=== PATIENT | male | born 1985 | race Caucasian/White ===

== ENCOUNTER 2020-05-02 08:11 | Emergency (ER) | payer BC, SELFPAY ==
[2020-05-02 08:21] VITALS: BP 141/76; PULSE 91; RESP 16; TEMP 36.4; O2SAT 100
--- NOTE | 2020-05-02 08:40 | ED.LOWEXIN ---
HPI - Extremity Injury (Lower) General Chief Complaint: Skin/Abscess/Foreign Body Stated Complaint: INFECTION ON LEGS Time Seen by Provider: 05/02/20 08:14 Source: patient Mode of arrival: ambulatory Limitations: no limitations History of Present Illness HPI Narrative: 34-year-old male presents to [facility] with possible infection to his posterior upper legs for the past 3 days. Patient reports that he noticed spots popping up to his posterior upper legs and was concerned he was having a reaction to his soap. Patient reports that his girlfriend did try to kelli the area last night with a needle. Patient has been applying Prid With little relief. Patient denies fever, bites, chills, nausea, vomiting or diarrhea. Onset (ago): day(s) (3) Other symptoms: none Related Data Home Medications Medication Instructions Recorded Confirmed No Home Medications 05/02/20 05/02/20 Allergies Allergy/AdvReac Type Severity Reaction Status Date / Time No Known Allergies Allergy Unverified 09/30/18 06:40 Review of Systems Constitutional: Constitutional: Denies chills, Denies fatigue, Denies fever(s) and Denies weakness ENT: Denies dysphagia, Denies epistaxis and Denies sore throat Respiratory: Respiratory: Denies chest congestion, Denies cough, Denies dyspnea and Denies wheezing Gastrointestinal: Gastrointestinal: Denies abdominal pain, Denies diarrhea, Denies nausea and Denies vomiting Musculoskeletal: Musculoskeletal: Denies back pain and Denies muscle cramps Integumentary/Breasts: Comments: Area of redness to posterior upper legs Neurologic: Denies vertigo, Denies dizziness, Denies syncope and Denies focal weakness PMFSH Family History Family History Grandparent Family history of congestive heart failure Other Family history of arthritis Family history of osteoporosis Social History Social History Smoking status: Heavy tobacco smoker Alcohol intake: current Comments At time of signature, I agree with nursing past medical, surgical, social and family history. There is no relevant family history pertinent to the presenting complaint. Exam Const: General: no acute distress and alert Nutritional Appearance: well nourished Orientation/consciousness: patient oriented x3 Neck: Neck: normal visual inspection Resp: Effort & Inspection: normal respiratory effort, not labored, not tachypneic and no use of accessory muscles Auscultation: clear to auscultation bilaterally, no rales, no rhonchi and no wheezes Cardio: Rate: regular rate, not bradycardic and not tachycardic Rhythm: regular rhythm and regular rhythm Heart sounds: no murmurs Skin: General skin exam: normal color, no jaundice and no pallor Other: There are multiple small pinpoint scabbed areas to posterior upper legs likely representing folliculitis. There is also a raised, erythematous 3 cm area to right posterior thigh. There is no fluctuance or induration noted. There is no streaking erythema, purulent drainage, bleeding, bruising or necrotic tissue noted. Neuro: General: patient oriented x3, moves all extremities, no meningeal signs and no focal motor deficits Psych: Appearance: grossly normal Mental Status: mental status grossly normal Affect: normal affect Attitude: cooperative Thought content: Yes Normal thought content present Course Vital Signs Vital signs: Vital Signs Temperature 36.4 C L 05/02/20 08:21 Pulse Rate 91 05/02/20 08:21 Respiratory Rate 16 05/02/20 08:21 Blood Pressure 141/76 H 05/02/20 08:21 Pulse Oximetry 100 05/02/20 08:21 Temperature 36.4 C L 05/02/20 08:21 Pulse Rate 91 05/02/20 08:21 Respiratory Rate 16 05/02/20 08:21 Blood Pressure 141/76 H 05/02/20 08:21 Pulse Oximetry 100 05/02/20 08:21 MDM - Extremity Injury (Lower) MDM Narrative Medical decision making narrativ
== END 2020-05-02 08:53 | disposition home or self-care (01) ==
PROVIDERS: Emergency Provider Nurse Practitioner Family
DX: L73.9 Follicular disorder, unspecified (principal); L03.115 Cellulitis of right lower limb; F17.200 Nicotine dependence, unspecified, uncomplicated
CPT/HCPCS: 99213; G0463

== ENCOUNTER → 2020-06-06 09:17 | Outpatient (CLI) | payer BC, SELFPAY ==
[2020-06-06 19:41] LABS: SARS-CoV-2 RNA PCR Positive
== END ==
PROVIDERS: Visit Provider Orthopaedic Surgery
DX: U07.1 COVID-19 (principal)
CPT/HCPCS: C9803; U0003; U0005

== ENCOUNTER 2020-06-21 00:31 | Day surgery (SDC) | payer BC, SELFPAY ==
[2020-06-06 13:19] VITALS: BMI 29.9
--- NOTE | 2020-06-14 10:16 | SUR.PREOP ---
pt states no changes in health hx since original interview date
--- NOTE | 2020-06-20 12:02 | WPDANESEPPF ---
Anes - Initial Pre Proc Eval Procedure: Operation Date: 06/21/20 07:30 Proposed Procedures p Repair Right Ankle Ligaments - Baldo Sunshine MD Date/Time: 06/20/20 12:02 Surgeon: Baldo Sunshine MD Pre Op Diagnosis: Right ankle Ligament tear, right ankle Instability Patient Data Age: 34 Gender: M Height: 1.83 m Weight: 100 kg Allergies Allergy/AdvReac Type Severity Reaction Status Date / Time No Known Allergies Allergy Verified 06/21/20 06:52 Home Medications Medication Instructions Recorded Confirmed Type ondansetron 8 mg disintegrating 8 mg PO Q6-8H PRN #10 tablet 06/06/20 06/21/20 Rx tablet oxycodone-acetaminophen 7.5 mg-325 1 tablet PO Q4-8H PRN #30 tablet 06/06/20 06/21/20 Rx mg tablet Patient hx anesthesia problems: none Family hx anesthesia problems: none PMFSH Past Medical History Medical History (Updated 06/20/20 @ 12:02 by Matthew Hawkins MD) Ankle syndesmosis disruption Anxiety Chronic GERD Right ankle instability Tear of deltoid ligament of right ankle Family History Family History Grandparent Family history of congestive heart failure Other Family history of arthritis Family history of osteoporosis Social History Social History Smoking packs per day: 0.5 Smoking cigarettes per day: 10.0 Years smoked: 8 Smoking pack-years: 4.00 Smoking status: Current every day smoker Alcohol intake: current Drinks per week: 14 Alcohol use details: BEER Living arrangements: with family Additional living arrangements comments: GIRLFRIEND Spiritual care concerns: No Anes - Eval Final PreProcedure Day of Procedure 06/20/20 12:02 Patient weight: overweight Heart: regular rate and rhythm Lungs: clear to auscultation and normal air movement Airway: Mallampati scale class II Neurological: alert and oriented Last oral intake: >/= 8 hours ASA classification: II Emergent: no Anesthetic plan: proceed Anesthesia type and monitoring: general LMA Informed Consent: The patient's anesthetic plan and its attendant risks and benefits were discussed with the patient/family/POA. Questions were solicited and answers provided to the satisfaction of the patient/family/POA.
[2020-06-21] VITALS (9 sets, daily range): BP systolic 100–166; BP diastolic 54–96; PULSE 60–77; RESP 14–20; TEMP 36.3–36.9; O2SAT 97–100
--- NOTE | ~2020-06-21 | XR_ITS ---
EXAMINATION: XR surgery orthopedic EXAM DATE: 06/21/2020 09:06 INDICATION: RT ankle ligaments/syndesmosis repair. Tight rope deltoid repair. TECHNIQUE: Fluoroscopy used during right ankle distal tibiofibular syndesmosis repair performed by Sy Sunshine MD. The DAP for this procedure was 0.06 mGym2.Gycm2.radcm2. FINDINGS: Frontal, oblique, lateral images demonstrates right fibular plate, supporting screws, tibi al and fibular tracts bridging the syndesmosis, with medial tibial anchors. Correlate with procedure note. IMPRESSION: Fluoroscopy used during XR surgery orthopedic. Reviewed, dictated and finalized at location A. [employer]
[2020-06-21] MEDS: ACETAMINOPHEN 500 MG TABLET 1000 MG PO (07:05)
[2020-06-21] MEDS: KETOROLAC 15 MG/ML VIAL (*BKC) IV PUSH (07:13)
--- NOTE | 2020-06-21 07:14 | WPDHPUPDATE1 ---
History and Physical Update Update Date/Time: 06/21/20 07:14 History and Physical has been reviewed, including an updated exam of the patient. There are NO changes in the patient's condition. Risks, benefits, and alternatives have been discussed and questions answered. Patient agrees to proceed with procedure.
[2020-06-21] MEDS: LACTATED RINGERS 1,000 ML 30 ML IV CONT (07:16)
[2020-06-21] MEDS: ceFAZolin 2 GM/D5W 50 ML 2 GM/50 ML BAG IVPB (07:38)
--- NOTE | 2020-06-21 07:41 | WPDANESPNB ---
Anes - Peripheral Nerve Block Date/Time: 06/21/20 07:41 I have discussed with the patient/family/POA the placement of a peripheral nerve block for post-operative pain management, including associated risks, benefits, complications, and side effects. Alternative methods of post-operative analgesia were detailed. Questions were solicited and answers provided to the satisfaction of the patient/family/POA. Time-Out: A pre-procedural Time-Out was completed immediately before starting the procedure and confirmed: Patient Identification, Site, Procedure, Patient Position and the Availability of Requisite Equipment. Clinical Indications: Acute post-operative pain management requested by the operative surgeon. Nerve Block Insertion Note Anes-nerve block: posterior fossa sciatic (20cc) right and adductor canal (10cc) right Patient position: supine Skin prep: chlorhexidine Needle: 22 gauge, stimulating, insulated echogenic needle. Needle length: 80 mm Technique: ultrasound (in plane) Injectate: bupivacaine 0.5% with epi 5 mcg/ml (20cc) Observations: tolerated well Complications: none Procedure start time:: 725 Procedure end time:: 0
--- NOTE | 2020-06-21 09:39 | PM.PROC ---
Procedure Note - Detailed Date of procedure: 06/21/20 Pre-op diagnosis: Right ankle Ligament tear, right ankle Instability Post-op diagnosis: other (Right ankle syndesmosis ligament tear, deltoid ligament tear, ankle instability.) Procedure performed: Right ankle open repair distal syndesmosis, open repair deltoid ligament. Description of procedure: Indications: Patient is a 34-year-old gentleman who sustained a right ankle injury. Radiographs show disruption of the syndesmosis as well as deltoid ligament with subluxation of the ankle mortise. Patient presents for operative treatment. Initially tested positive for COVID-19. He has gone through quarantine. And now presents for operative treatment. What was done: Patient identified in the preoperative holding. Informed consent given. Operative extremity marked. Patient received intravenous antibiotics. Patient brought to the operating room where underwent general anesthetic by anesthesia team. Positioned supine on operating room table. Time-out performed confirming the patient, site of the surgery and the plan. Right lower extremity prepped draped usual sterile surgical fashion using a ChloraPrep skin solution. Foot and ankle exsanguinated and a thigh tourniquet was inflated to 250 mmHg. There is a previous direct lateral incision from a previous fibular fracture which was utilized. The distal half of this was used and incision made with a 15 blade knife. Hemostasis controlled electrocautery. Fascia incised in line with skin incision. The distal portion of a previous plate at the distal fibula was identified. One screw was removed. Dissection was carried anterior to the fibula to allow for reduction of the syndesmosis. A large syndesmosis clamp was placed and reduction was checked with image intensification. Fixation was achieved with the Arthrex syndesmosis tight rope. Two of these were utilized through the lateral plate with good fixation noted. The foot was held in neutral dorsiflexion during application. Wound thoroughly irrigated antibiotic solution and fascia were repaired with 2 Vicryl interrupted suture. Subcutaneous tissue repaired with 3 Monocryl interrupted suture and skin repaired with 4 nylon running suture. We then turned attention to the deltoid ligament on the medial ankle. A longitudinal incision made with 15 blade knife from the medial malleolus distally. Hemostasis controlled electrocautery. Fascia incised line with skin incision. Rupture of the deltoid ligament off of the distal medial malleolus was noted. Medial malleolus was then prepared with a rongeur and a rasp to make a good bleeding bone surface. Wound thoroughly irrigated antibiotic solution including the medial ankle joint and suctioned out. Repair of the deltoid then performed with fiber tacks placed into the medial malleolus followed by passage of the FiberTape through the deltoid ligament. Ankle reduced and the fiber tapes secured. Image intensification then brought in confirm reduction of the ankle mortise and good stability to valgus and external rotation. Wound thoroughly irrigated and fascia closed with 2 Vicryl interrupted suture. Subcutaneous tissue repaired with 3 0 Monocryl interrupted sutures skin repaired 0000 nylon running suture. Sterile dressing applied. The patient was then woken from anesthesia, extubated and taken to the recovery room in stable condition. All sponge, needle, instrument counts were correct at the end of the case. Implants: Arthrex syndesmosis type rope x2, 1.3 mm fiber tack x2 Anesthesia: GLMA Surgeon: Baldo Sunshine MD Sole Stapler Welt: 1st primary teaching assistant Estimated blood loss (mL): 5 Tourniquet time (min): 66 Drains: No Packing: No Pathology: none sent Complications: None Condition: stable Disposition: PACU
--- NOTE | 2020-06-21 10:07 | SUR.PHASEI ---
1000; PT RESTING QUIETLY, DENIES PAIN OR NAUSEA.
[2020-06-21] MEDS: oxyCODONE HCL (*CRX) 5 MG TAB IR PO (10:32)
== END 2020-06-21 11:15 | disposition home or self-care (01) ==
PROVIDERS: Visit Provider Orthopaedic Surgery
PROC: (CPT 27829; principal; 2020-06-21 07:30)
DX: S93.421A Sprain of deltoid ligament of right ankle, initial encounter (principal); S93.431A Sprain of tibiofibular ligament of right ankle, initial encounter; M25.371 Other instability, right ankle; W00.0XXA Fall on same level due to ice and snow, initial encounter; G89.18 Other acute postprocedural pain; F41.9 Anxiety disorder, unspecified; K21.9 Gastro-esophageal reflux disease without esophagitis; F17.210 Nicotine dependence, cigarettes, uncomplicated
CPT/HCPCS: 27829; 27695; 64445; 64447; A9270; C1713; J0690; J1100; J1885; J2250; J2405; J2704; J3010; J7120

== ENCOUNTER 2022-06-02 08:32 | Emergency (ER) | payer BC, SELFPAY ==
--- NOTE | ~2022-06-02 | XR_ITS ---
EXAMINATION: XR wrist RT min 3V INDICATION: Right wrist pain TECHNIQUE: Three views of the right wrist are obtained. COMPARISON: None available FINDINGS: No fracture, dislocation, or subluxation. The bones, soft tissues, and joint spaces are nor mal. IMPRESSION: 1. No acute osseous abnormality. Reviewed, dictated and finalized at location B. COORDINATOR
[2022-06-02 08:40] VITALS: BP 127/85; PULSE 88; RESP 20; TEMP 37; O2SAT 100
--- NOTE | 2022-06-02 09:09 | ED.GENADULT ---
HPI - General Adult General Chief complaint: Extremity Injury, Upper Stated complaint: R WRIST PAIN S/P FALL Time Seen by Provider: 06/02/22 08:52 History of Present Illness HPI narrative: Patient is a 36-year-old right-handed male here for evaluation of pain in his right wrist over the past day. Patient states that he woke up yesterday and his wrist was sore without obvious trigger. Patient states that while he was at work he sustained a mechanical fall down a small slope, landing with his wrist in flexion behind him. He denies head injury or loss of consciousness. States then his wrist has been sore and he has had difficulty moving it due to pain. Has not attempted any pain medicine but has been drinking [place] with good relief of his pain. No numbness or tingling in the hand. Related Data Allergies Allergy/AdvReac Type Severity Reaction Status Date / Time No Known Allergies Allergy Verified 06/02/22 08:45 Review of Systems Review of Systems: Gen.: Denies fevers or chills Eyes: Denies eye pain or visual change ENT: Denies congestion Respiratory: Denies shortness of breath or cough CV: Denies chest pain or palpitations GI: Denies abdominal pain nausea, emesis or diarrhea denies burning, urgency, frequency or hematuria Musculoskeletal: Reports right wrist pain. Neuro: Denies numbness, tingling, weakness or focal weakness Skin: Denies rash Except as documented, all other systems reviewed and negative [facility] Past Medical History Medical History Ankle syndesmosis disruption Anxiety Chronic GERD Fracture of patella, left, closed Right ankle instability Tear of deltoid ligament of right ankle Family History Family History Grandparent Family history of congestive heart failure Other Family history of arthritis Family history of osteoporosis Social History Social History Smoking packs per day: 0.5 Smoking cigarettes per day: 10.0 Years smoked: 8 Smoking pack-years: 4.00 Smoking status: Current every day smoker Tobacco type: cigarettes Alcohol intake: current Drinks per week: 14 Alcohol use details: BEER Substance use: unknown Living arrangements: with roommate(s) Additional living arrangements comments: GIRLFRIEND Occupation/Education: occupation Gender identity (if verbalized by the patient): Male Sexual Orientation (if Verbalized by the Patient): Straight or Heterosexual Spiritual care concerns: No Exam Narrative: Gen: Alert, oriented, no acute disease Eyes: EOMI, no icterus Pulm: Respirations even and unlabored, symmetric thorax expansion, no audible stridor or visible cyanosis CV: strong radial pulses GI: No distension, no voluntary/involuntary guarding Neuro: AOx4, moves all extremities without apparent difficulty or weakness, follows commands MSK: Slight tenderness to palpation along the distal ulna. no snuffbox tenderness. No tenderness along other carpal bones or radius. Compartments are soft. Brisk capillary refill in all 5 digits. No pain with active range of motion in fingers but notes pain with active flexion of wrist. No pain with passive range of motion. Skin: No jaundice, no visible bruising, rashes, lesions or wounds on exposed skin Psych: Normal mood/affect, insight/judgement good, adequate fund of knowledge, recent/remote memory intact Course Vital Signs Vital signs: Vital Signs Temperature 98.6 F 06/02/22 08:40 Pulse Rate 88 06/02/22 08:40 Respiratory Rate 20 06/02/22 08:40 Blood Pressure 127/85 06/02/22 08:40 Pulse Oximetry 100 06/02/22 08:40 Oxygen Delivery Room Air 06/02/22 08:40 Temperature 98.6 F 06/02/22 08:40 Pulse Rate 88 06/02/22 08:40 Respiratory Rate 20 06/02/22 08:40 Blood Pressure 127/85 06/02/22 08:40 Pulse Oximetry 100 02
[2022-06-02] MEDS: IBUPROFEN 600 MG TABLET PO (09:30)
[2022-06-02 09:45] VITALS: BP 144/84; PULSE 87; RESP 20; O2SAT 100
== END 2022-06-02 09:47 | disposition home or self-care (01) ==
PROVIDERS: Emergency Provider Physician Assistant
DX: S69.91XA Unspecified injury of right wrist, hand and finger(s), initial encounter (principal); K21.9 Gastro-esophageal reflux disease without esophagitis; F17.210 Nicotine dependence, cigarettes, uncomplicated; W10.2XXA Fall (on)(from) incline, initial encounter
CPT/HCPCS: 73110; 99283; A9270

== ENCOUNTER 2023-08-21 10:42 | Outpatient (CLI) | payer BC, SELFPAY ==
--- NOTE | ~2023-08-21 | MR_ITS ---
MRI of the right elbow CLINICAL HISTORY: Pain TECHNIQUE: Proton-density and proton-density fat-sat images were performed in the axial, coronal, and sagittal planes. FINDINGS: Ulnar collateral ligament is intact. Radial collateral ligament and the lateral ulnar colla teral ligament are intact. There is moderate tendinosis with low-grade insertional partial tear at th e common extensor tendon origin at the lateral epicondyle of the humerus. There is minimal tendinosis of the common flexor tendon origin. Bone marrow signals are unremarkable. No significant osseous or articular abnormality of the elbow gin int seen. No joint effusion evident. Brachialis, biceps, and triceps tendons are intact. Visualized musculature unremarkable. No soft tiss ue mass or fluid collection seen. IMPRESSION: Moderate tendinosis with low-grade insertional partial tear at the common extensor tendon origin at t he lateral epicondyle of the humerus. Reviewed, dictated and finalized at [facility]. IMPRESSION: Moderate tendinosis with low-grade insertional partial tear at the common exten sor tendon origin at the lateral epicondyle of the humerus.
== END 2023-08-21 10:43 | disposition home or self-care (01) ==
PROVIDERS: PCP Physician Assistant; Visit Provider Nurse Practitioner Family
DX: M25.521 Pain in right elbow (principal)
CPT/HCPCS: 73221

== ENCOUNTER 2023-11-17 08:47 | Emergency (ER) | payer BC, SELFPAY ==
[2023-11-17] VITALS (13 sets, daily range): BP systolic 127–143; BP diastolic 53–88; PULSE 71–74; RESP 15–16; TEMP 36.5; O2SAT 98–100
--- NOTE | ~2023-11-17 | XR_ITS ---
EXAMINATION: XR wrist RT min 3V DATE: 11/17/2023 09:11 INDICATION: Ulnar-sided right wrist pain. TECHNIQUE: 4 views of right wrist were obtained. COMPARISON: Right wrist radiograph 06/02/2022 FINDINGS: Bone alignment is normal. No fracture. There is mild osteoarthritis of distal radioulnar gin int. IMPRESSION: 1. Mild osteoarthritis of distal radioulnar joint. Reviewed, dictated and finalized at location A.
--- NOTE | 2023-11-17 09:11 | ED.UPPEXIN ---
HPI - Extremity Injury (Upper) General Chief Complaint: Extremity Injury, Upper Stated Complaint: R wrist pain Time Seen by Provider: 11/17/23 09:01 Source: patient Mode of arrival: ambulatory Limitations: no limitations History of Present Illness HPI narrative: Patient is a 38-year-old male who presents the ED with report of right wrist pain. Patient reports having pain for the last 1 week or so. He has had similar pain in the past and been seen in the ED here for this. 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 Complains of pain mostly along the lateral/ulnar edge. Reports mild swelling. Denies any numbness, tingling, paresthesias in fingers, wounds, rashes. Related Data Allergies Allergy/AdvReac Type Severity Reaction Status Date / Time No Known Allergies Allergy Verified 11/17/23 08:48 Review of Systems Review of Systems: CONSTITUTIONAL: Denies fever, chills, or sweats. MUSCULOSKELETAL: See HPI. NEUROLOGIC: Denies headache, dizziness, numbness, or weakness. All systems reviewed & are unremarkable except as noted in HPI and below PMFSH Past Medical History Medical History Ankle syndesmosis disruption Anxiety Chronic GERD Degenerative joint disease of right elbow Fracture of patella, left, closed Lateral epicondylitis Right ankle instability Right elbow pain Tear of deltoid ligament of right ankle Family History Family History Grandparent Family history of congestive heart failure Other Family history of arthritis Family history of osteoporosis Social History Social History Smoking packs per day: 0.5 Smoking cigarettes per day: 10.0 Years smoked: 8 Smoking pack-years: 4.00 Smoking status: Current every day smoker Tobacco type: cigarettes Alcohol intake: current Drinks per week: 14 Alcohol use details: BEER Substance use: unknown Living arrangements: with roommate(s) Additional living arrangements comments: GIRLFRIEND Occupation/Education: occupation Gender identity (if verbalized by the patient): Male Sexual Orientation (if Verbalized by the Patient): Straight or Heterosexual Spiritual care concerns: No Exam Narrative: GENERAL: Well appearing, obese with BMI 30.3, non-toxic, in no acute distress. HEAD: Normocephalic, atraumatic. RESPIRATORY: Airway patent, respirations nonlabored. CARDIOVASCULAR: Regular rate and rhythm. Radial pulses intact. MUSCULOSKELETAL: No gross deformities. Minimal limited ROM of right wrist due to pain. Mild tenderness palpation over R radial ulnar joint and along distal radius/lateral edge of wrist. Minimal swelling noted. Negative carpal compression testing. Sensation intact throughout all fingers, capillary refill intact. SKIN: Warm, dry, normal color. NEURO: A&O X3. Speech clear. PSYCHIATRIC: Appropriate mood and affect. Normal interaction. Course Vital Signs Vital signs: Vital Signs Temperature 97.7 F 11/17/23 08:52 Pulse Rate 71 11/17/23 08:52 Respiratory Rate 15 11/17/23 08:52 Blood Pressure 143/83 H 11/17/23 08:52 Pulse Oximetry 100 11/17/23 08:52 Oxygen Delivery Room Air 11/17/23 08:52 Temperature 97.7 F 11/17/23 08:52 Pulse Rate 71 11/17/23 08:52 Respiratory Rate 15 11/17/23 08:52 Blood Pressure 143/83 H 11/17/23 08:52 Pulse Oximetry 100 11/17/23 08:52 Oxygen Delivery Room Air 11/17/23 08:52 MDM - Extremity Injury (Upper) MDM Narrative Medical decision making narrative: Patient?s injury is consistent with musculoskeletal etiology. No signs of neurologic or vascular compromise on physical examination. Compartments are soft without signs of compartment syndrome. XR R wrist showing of radial ulnar joint. No frac
== END 2023-11-17 10:35 | disposition home or self-care (01) ==
PROVIDERS: Emergency Provider Physician Assistant; PCP Physician Assistant
DX: M19.031 Primary osteoarthritis, right wrist (principal); S66.911A Strain of unspecified muscle, fascia and tendon at wrist and hand level, right hand, initial encounter; F17.210 Nicotine dependence, cigarettes, uncomplicated; X58.XXXA Exposure to other specified factors, initial encounter
CPT/HCPCS: 73110; 99283